=== PATIENT | female | born 1960 | race African-American/Black ===

== ENCOUNTER 2017-06-28 07:26 | Emergency (ER) | payer BC ==
[~2017-06-28] VITALS: Ht 160 cm; Wt 86.2 kg
[~2017-06-28 07:26] MED LIST: CARVEDILOL12.5 MG PO; FLONASE 0.05%50 MCG NASAL; GLUCOPHAGE500 MG PO; HYDROCHLOROTH12.5 MG PO; IBUPROFEN 600600 M1 PO; LEVOTHROID75 MCG PO; LEVOTHYROXINE0.05 MG PO; LISINOPRIL20 MG PO; METFORMIN ER 5500 M1 PO; NORCO 5-325 TA1 EACH PO; ULTRAM 50MG TAB50 MG PO; ZESTORETIC 20-1 EAC3 PO
[2017-06-28 07:32] VITALS: BP 145/94
[2017-06-28] MEDS ORDERED: NORVASC5 MG PO (08:21)
== END 2017-06-28 09:00 | disposition home or self-care (01) ==
LOC: ER 07:26
DX: R05 Cough (principal); J45.909 Unspecified asthma, uncomplicated; I10 Essential (primary) hypertension; E89.0 Postprocedural hypothyroidism; Z88.8 Allergy status to other drugs, medicaments and biological substances